=== PATIENT | male | born 1960 | race Caucasian/White ===

== ENCOUNTER 2017-09-30 08:47 | Inpatient (IN) ==
--- NOTE | 2017-09-30 09:09 | Emergency Department Note ---
Disposition Clinical Impression: STEMI (ST elevation myocardial infarction) Disposition: Admitted As Inpatient Condition: Fair Referrals: NONE,PCP [Primary Care Provider] - Forms: ED Satisfaction Letter Time of Disposition: 09:28 General Adult HPI - General Chief complaint: ED Shortness of Breath/Dyspnea Stated complaint: SANCHO, Stent placed 09/26 Time Seen by Provider: 09/30/17 08:55 Source: patient, family Mode of arrival: ambulatory Limitations: no limitations Nursing Notes Reviewed: Yes Vital Signs Reviewed: Yes - History of Present Illness HPI Narrative: Patient is a 56-year-old male that ambulates to the ED with chief complaint shortness of breath that started yesterday evening. Patient recently had a stent placed on 09/26/2017 in [facility]. It appears that patient had a stent placed in his proximal LAD. Pt denies any chest pain, nausea, vomiting, diaphoresis, fever, cough, abdominal pain, weakness or any other symptoms as complaints. Patient states that when he was in [place] when he had his heart attack he was having chest pain at that time. states that patient never goes to the doctor. While in [place] they started him on diabetic and high blood pressure medication. Pt is does smoke cigarettes but states he stopped after he had his heart attack Pt Subjective Complaint: SOB Onset (ago): day(s) (yesterday evening) Pain Scale: 0 Improves with: nothing Worsens with: nothing Associated symptoms: Reports: denies other symptoms. Denies: confusion, chest pain, cough, diaphoresis, fever/chills, headaches, loss of appetite, malaise, nausea/vomiting, rash, seizure, shortness of breath, syncope, weakness - Related Data Home Medications Medication Instructions Recorded Confirmed Aspirin [Lo-Dose Aspirin EC] 81 mg PO DAILY 09/30/17 09/30/17 Atorvastatin Calcium 80 mg PO DAILY 09/30/17 09/30/17 Carvedilol [Coreg] 6.25 mg PO BIDWM 09/30/17 09/30/17 Famotidine [Heartburn Prevention] 20 mg PO BID 09/30/17 09/30/17 Furosemide [Lasix] 20 mg PO DAILY PRN 09/30/17 09/30/17 Lisinopril [Zestril] 5 mg PO DAILY 09/30/17 09/30/17 Nitroglycerin [Nitrostat] 0.4 mg SL Q5M PRN 09/30/17 09/30/17 Spironolactone [Aldactone] 25 mg PO DAILY 09/30/17 09/30/17 Ticagrelor [Brilinta] 90 mg PO BID 09/30/17 09/30/17 Warfarin [Coumadin] 5 mg PO DAILY 09/30/17 09/30/17 glipiZIDE [Glucotrol] 5 mg PO BIDWM 09/30/17 09/30/17 Allergies Allergy/AdvReac Type Severity Reaction Status Date / Time No Known Allergies Allergy Verified 09/30/17 08:49 All systems ED: reviewed and negative except as stated. Review of Systems: As Per HPI Constitutional: Denies: fever, chills, weakness Eyes: Denies: vision change ENT ED: Denies: congestion Cardiovascular: Denies: chest pain, palpitations, dyspnea on exertion, orthopnea , syncope, paroxysmal nocturnal dyspnea Respiratory: Reports: dyspnea. Denies: cough, wheezes, hemoptysis, stridor, sputum production Gastrointestinal: Denies: abdominal pain, nausea, vomiting, diarrhea, constipation, hematemesis, melena, hematochezia Genitourinary: Denies: urgency, dysuria, frequency Musculoskeletal: Denies: back pain, neck pain Integumentary: Denies: rash Neurological: Denies: headache, weakness, numbness, paresthesias Past Medical History - Past Medical History Source: patient Medical history: Reports: coronary artery disease, diabetes, myocardial infarction, other Surgical history: Reports: non-contributory Psychiatric history: Reports: no psych history - Social History Smoking Status: Former smoker Smokeless Tobacco Status: No Alcohol use: Reports: none Drug use: Reports: none Physical Exam - General Limitations: no limitations General appearance: alert, in no apparent distress - Head Head exam: atraumatic, normocephalic, normal inspection - Eye Eye exam: Present: normal appearance, EOMI - ENT ENT exam: normal exam, normal oropharynx, mucous membranes moist - Neck Neck exam: Present: normal inspection, full ROM, trachea midline. Absent: tenderness, meningismus - Chest Chest inspection: Present: symmetric chest wall rise - Respiratory Respiratory exam: Present: normal lung sounds bilaterally. Absent: respiratory distress, wheezes, stridor, accessory muscle use, prolonged expiratory phase - Cardiovascular Cardiovascular exam: Present: regular rate, normal rhythm, normal heart sounds - Abdominal Exam Abdominal exam: Present: soft, Non-Tender, normal bowel sounds. Absent: tenderness, distention, guarding, rebound, rigidity - Extremities Exam Extremities exam: Present: normal inspection, full ROM. Absent: tenderness, pedal edema - Expanded Lower Extremity Exam Gait: observed and normal - Back Exam Back exam: Present: normal inspection, full ROM. Absent: tenderness - Neurological Exam Neurological exam: Present: alert, oriented X3, CN II-XII intact - Psychiatric Psychiatric exam: Present: normal affect, normal mood - Skin Skin exam: Present: warm, dry, intact, normal color. Absent: rash, cyanosis, diaphoresis Course Course Narrative: Patient is a 56-year-old male that ambulates to the ED with chief complaint shortness of breath that started yesterday evening. Patient recently had a stent placed on 09/26/2017 in [facility]. It appears that patient had a stent placed in his proximal LAD. Pt denies any chest pain, nausea, vomiting, diaphoresis, fever, cough, abdominal pain, weakness or any other symptoms as complaints. Patient states that when he was in [place] when he had his heart attack he was having chest pain at that time. states that patient never goes to the doctor. While in [place] they started him on diabetic and high blood pressure medication. Pt is does smoke cigarettes but states he stopped after he had his heart attack EKG was done in triage. EKG was seen by Dr. ORTEGA at 08 54 AM, which showed anteroseptal ST elevations with deep T-wave inversions. STEMI CALLED 08:55 Dr. Ortega and I immediately examined patient upon arrival. Pt immediately hooked up to crash cart.Patient is alert and oriented 3. Appears in no acute distress. Vital stable. Afebrile. Head normocephalic. Eyes normal inspection. ENT within normal limits. Neck supple, full range of motion, nontender. Heart RRR. Lungs CTAB. No wheezing, stridor or retractions. Abdomen soft, nontender. Back normal instruction, nontender. Extremities within normal limits. Neuro no focal neurological deficits noted on exam. Dr. Ortega IMMEDIATELY walked patient's EKG down to Dr. Bee in the lab analyst for him to review personally @08:[address] Bee sent his ORE GRADER to the ED to evaluate pt. Waiting on labs to return for possible immediate catheterization. Patient is currently on Brilinta and Coumadin. If Patient's INR is 2 or less, will call research laboratory manager again to confirm starting Heparin drip and wheeling pt down to Cath. 09:18 AM Heparin Drip started 09:28AM, still waiting disposition for possible cath. Discussed case with Dr. Bee's ORE GRADER. She states that Dr. Bee recommends a CTA at this time to rule out PE, since his INR is 1.2 and he doesn't have any previous EKG to compare to at this time. States pt has no reciprocal changes on his current EKG. Still currently waiting on documents from [place]. 09:26am. Again, pt denying any pain. Vitals stable. 09:26 AM. CXR: Borderline cardiomegaly without acute abnormality. Trop 9.3 - Reevaluation(s) Reevaluation #1: Walked old EKG's down for Dr. eBe to review. He states they look the same. Will consult again after CTA returns. Time: 10:18 Reevaluation #2: Dr. Vaughan in our ED evaluating patient. Patient will not be going to the lab analyst and will be admitted to medicine. Hospitalist paged at this time. Time: 10:36 Reevaluation #3: DR. Beckett accepted pt. Request I order a CK. No other request at this time. After Dr. Vaughan evaluated pt in the ED she requested I give patient 90 mg Brilinta and Lasix [address] Vaughan states that she thinks this is all heart failure related. Vital Signs Temperature 98.7 F 09/30/17 08:49 Pulse Rate 74 09/30/17 08:49 Respiratory Rate 20 09/30/17 08:49 Blood Pressure 124/87 09/30/17 08:49 O2 Sat by Pulse Oximetry 98 09/30/17 08:49 Temperature 98.7 F 09/30/17 08:49 Pulse Rate 65 09/30/17 10:49 Respiratory Rate 14 09/30/17 10:49 Blood Pressure 110/75 09/30/17 10:49 O2 Sat by Pulse Oximetry 97 09/30/17 10:49 Oxygen Delivery Oxygen Delivery Room Air Medical Decision Making - Medical Records Medical records reviewed: Yes I reviewed the patient's medical records. - Lab Data Lab results reviewed: Yes I reviewed the patient's lab results. Result diagrams: 09/30/17 09:00 09/30/17 09:00 Lab Results 09/30/17 09/30/17 09/30/17 Range/Units 09:00 09:00 09:00 WBC 11.0 (4.3-11.1) K/mcL RBC 5.04 (4.19-5.50) M/mcL Hgb 14.9 (12.9-16.9) g/dL Hct 44.7 (37.5-50.1) % MCV 88.7 (83.0-100.0) fL MCH 29.6 (28.0-33.3) pg MCHC 33.3 (31.6-35.5) g/dL RDW 13.0 (11.5-14.5) % Plt Count 298 (140-400) K/mcL MPV 10.7 (9.4-12.4) fL Immature Gran % 0.5 (0-4) % Seg Neutrophils % 65.5 % Lymphocytes % 21.7 % Monocytes % 9.2 % Eosinophils % 2.6 % Basophils % 0.5 % Neutrophils # 7.2 (1.6-8.9) K/mcL Lymphocytes # 2.4 (0.6-4.6) K/mcL Monocytes # 1.0 (0.0-1.3) K/mcL Eosinophils # 0.3 (0.0-0.6) K/mcL Basophils # 0.1 (0.0-0.2) K/mcL PT 14.0 H (9.4-12.1) Seconds INR 1.3 APTT 31.2 (26.0-36.0) Seconds Sodium 132 L (136-145) mEq/L Potassium 4.1 (3.5-5.1) mEq/L Chloride 99 (98-107) mEq/L Carbon Dioxide 27 (23-29) mEq/L BUN 16 (6-20) mg/dL Creatinine 0.85 (0.70-1.30) mg/dL Est GFR ( Amer) > 60 (> 60) Est GFR (Non-Af Amer) > 60 (> 60) BUN/Creatinine Ratio 19 (6-26) Glucose 227 H (70-105) mg/dL Calculated Osmolality 282 (280-300) Calcium 9.3 (8.6-10.3) mg/dL Troponin I (< 0.04) ng/mL 09/30/17 Range/Units 09:00 WBC (4.3-11.1) K/mcL RBC (4.19-5.50) M/mcL Hgb (12.9-16.9) g/dL Hct (37.5-50.1) % MCV (83.0-100.0) fL MCH (28.0-33.3) pg MCHC (31.6-35.5) g/dL RDW (11.5-14.5) % Plt Count (140-400) K/mcL MPV (9.4-12.4) fL Immature Gran % (0-4) % Seg Neutrophils % % Lymphocytes % % Monocytes % % Eosinophils % % Basophils % % Neutrophils # (1.6-8.9) K/mcL Lymphocytes # (0.6-4.6) K/mcL Monocytes # (0.0-1.3) K/mcL Eosinophils # (0.0-0.6) K/mcL Basophils # (0.0-0.2) K/mcL PT (9.4-12.1) Seconds INR APTT (26.0-36.0) Seconds Sodium (136-145) mEq/L Potassium (3.5-5.1) mEq/L Chloride (98-107) mEq/L Carbon Dioxide (23-29) mEq/L BUN (6-20) mg/dL Creatinine (0.70-1.30) mg/dL Est GFR ( Amer) (> 60) Est GFR (Non-Af Amer) (> 60) BUN/Creatinine Ratio (6-26) Glucose (70-105) mg/dL Calculated Osmolality (280-300) Calcium (8.6-10.3) mg/dL Troponin I 9.30 H* (< 0.04) ng/mL - Radiology Data Radiology results reviewed: Yes I reviewed the patient's radiology results.
[2017-09-30 09:13] LABS: INR 1.3
--- NOTE | 2017-09-30 09:13 | Emergency Department Note ---
Disposition Clinical Impression: Dyspnea STEMI (ST elevation myocardial infarction) Qualifiers: Involved coronary artery: LAD coronary artery Qualified Code(s): I21.02 - ST elevation (STEMI) myocardial infarction involving left anterior descending coronary artery Disposition: Admitted As Inpatient Condition: Fair General Adult HPI - General Chief complaint: ED Shortness of Breath/Dyspnea Stated complaint: SANCHO, Stent placed 09/26 Time Seen by Provider: 09/30/17 08:55 Source: patient, family Mode of arrival: ambulatory Limitations: no limitations - History of Present Illness Pain Scale: 0 - Related Data Home Medications Medication Instructions Recorded Confirmed Aspirin [Lo-Dose Aspirin EC] 81 mg PO DAILY 09/30/17 09/30/17 Atorvastatin Calcium 80 mg PO DAILY 09/30/17 09/30/17 Carvedilol [Coreg] 6.25 mg PO BIDWM 09/30/17 09/30/17 Famotidine [Heartburn Prevention] 20 mg PO BID 09/30/17 09/30/17 Furosemide [Lasix] 20 mg PO DAILY PRN 09/30/17 09/30/17 Lisinopril [Zestril] 5 mg PO DAILY 09/30/17 09/30/17 Nitroglycerin [Nitrostat] 0.4 mg SL Q5M PRN 09/30/17 09/30/17 Spironolactone [Aldactone] 25 mg PO DAILY 09/30/17 09/30/17 Ticagrelor [Brilinta] 90 mg PO BID 09/30/17 09/30/17 Warfarin [Coumadin] 5 mg PO DAILY 09/30/17 09/30/17 glipiZIDE [Glucotrol] 5 mg PO BIDWM 09/30/17 09/30/17 Allergies Allergy/AdvReac Type Severity Reaction Status Date / Time No Known Allergies Allergy Verified 09/30/17 08:49 Past Medical History - Past Medical History Medical history: Reports: coronary artery disease, diabetes, myocardial infarction, other Surgical history: Reports: non-contributory Psychiatric history: Reports: no psych history - Social History Smoking Status: Former smoker Smokeless Tobacco Status: No Alcohol use: Reports: none Drug use: Reports: none Physical Exam - General Limitations: no limitations General appearance: alert, in no apparent distress Course Vital Signs Temperature 98.7 F 09/30/17 08:49 Pulse Rate 74 09/30/17 08:49 Respiratory Rate 20 09/30/17 08:49 Blood Pressure 124/87 09/30/17 08:49 O2 Sat by Pulse Oximetry 98 09/30/17 08:49 Temperature 98.7 F 09/30/17 08:49 Pulse Rate 70 09/30/17 12:53 Respiratory Rate 14 09/30/17 12:53 Blood Pressure 119/87 09/30/17 12:53 O2 Sat by Pulse Oximetry 97 09/30/17 12:53 Oxygen Delivery Oxygen Delivery Nasal Cannula Medical Decision Making - Lab Data Result diagrams: 09/30/17 09:00 09/30/17 09:00 Lab Results 09/30/17 09/30/17 09/30/17 Range/Units 09:00 09:00 09:00 WBC 11.0 (4.3-11.1) K/mcL RBC 5.04 (4.19-5.50) M/mcL Hgb 14.9 (12.9-16.9) g/dL Hct 44.7 (37.5-50.1) % MCV 88.7 (83.0-100.0) fL MCH 29.6 (28.0-33.3) pg MCHC 33.3 (31.6-35.5) g/dL RDW 13.0 (11.5-14.5) % Plt Count 298 (140-400) K/mcL MPV 10.7 (9.4-12.4) fL Immature Gran % 0.5 (0-4) % Seg Neutrophils % 65.5 % Lymphocytes % 21.7 % Monocytes % 9.2 % Eosinophils % 2.6 % Basophils % 0.5 % Neutrophils # 7.2 (1.6-8.9) K/mcL Lymphocytes # 2.4 (0.6-4.6) K/mcL Monocytes # 1.0 (0.0-1.3) K/mcL Eosinophils # 0.3 (0.0-0.6) K/mcL Basophils # 0.1 (0.0-0.2) K/mcL PT 14.0 H (9.4-12.1) Seconds INR 1.3 APTT 31.2 (26.0-36.0) Seconds Sodium 132 L (136-145) mEq/L Potassium 4.1 (3.5-5.1) mEq/L Chloride 99 (98-107) mEq/L Carbon Dioxide 27 (23-29) mEq/L BUN 16 (6-20) mg/dL Creatinine 0.85 (0.70-1.30) mg/dL Est GFR ( Amer) > 60 (> 60) Est GFR (Non-Af Amer) > 60 (> 60) BUN/Creatinine Ratio 19 (6-26) Glucose 227 H (70-105) mg/dL Calculated Osmolality 282 (280-300) Calcium 9.3 (8.6-10.3) mg/dL Creatine Kinase 197 (30-223) Units/L Troponin I (< 0.04) ng/mL 09/30/17 Range/Units 09:00 WBC (4.3-11.1) K/mcL RBC (4.19-5.50) M/mcL Hgb (12.9-16.9) g/dL Hct (37.5-50.1) % MCV (83.0-100.0) fL MCH (28.0-33.3) pg MCHC (31.6-35.5) g/dL RDW (11.5-14.5) % Plt Count (140-400) K/mcL MPV (9.4-12.4) fL Immature Gran % (0-4) % Seg Neutrophils % % Lymphocytes % % Monocytes % % Eosinophils % % Basophils % % Neutrophils # (1.6-8.9) K/mcL Lymphocytes # (0.6-4.6) K/mcL Monocytes # (0.0-1.3) K/mcL Eosinophils # (0.0-0.6) K/mcL Basophils # (0.0-0.2) K/mcL PT (9.4-12.1) Seconds INR APTT (26.0-36.0) Seconds Sodium (136-145) mEq/L Potassium (3.5-5.1) mEq/L Chloride (98-107) mEq/L Carbon Dioxide (23-29) mEq/L BUN (6-20) mg/dL Creatinine (0.70-1.30) mg/dL Est GFR ( Amer) (> 60) Est GFR (Non-Af Amer) (> 60) BUN/Creatinine Ratio (6-26) Glucose (70-105) mg/dL Calculated Osmolality (280-300) Calcium (8.6-10.3) mg/dL Creatine Kinase (30-223) Units/L Troponin I 9.30 H* (< 0.04) ng/mL Attestation Statement - Attestation Attestation: For this encounter, I have reviewed the [employer] or PA documentation, treatment plan, and medical decision making; and I have had face to face time with this patient. Patient presents to the ED complaining of shortness of breath. Onset about 1 AM today. Patient is status post stent placement to his LAD in [place] on Thursday. Feeling bad this morning. He denies any chest pain back pain pressure or heaviness. He states he was having chest pain when he had his heart catheter performed. Exam. The patient is sitting on the edge of the bed in no distress. I was handed an EKG that shows anteroseptal ST elevations with deep T-wave inversions. It is unclear if this is reperfusion or another ST elevation MO. We did call a STEMI alert and in discussing with Dr. Bee and review the EKG with him. Cardiac workup at this time. Awaiting cardiology decision on cath.
[2017-09-30 09:16] LABS: Activated Partial Thrombo Time 31.2 Seconds (26.0-36.0)
[2017-09-30 09:22] LABS: BUN/Creatinine Ratio 19 (6-26); Blood Urea Nitrogen 16 mg/dL (6-20); Calcium 9.3 mg/dL (8.6-10.3); Carbon Dioxide 27 mEq/L (23-29); Chloride 99 mEq/L (98-107); Glucose 227 mg/dL (70-105); Osmolality,Calculated 282 (280-300); Potassium 4.1 mEq/L (3.5-5.1); Sodium 132 mEq/L (136-145); eGFR For African Americans > 60 (> 60); eGFR For Non-African Americans > 60 (> 60)
[2017-09-30] MEDS ORDERED: Aspirin 81 MG TAB.CHEW PO ONE (09:22)
[2017-09-30] MEDS ORDERED: *HR* Heparin 5,000 UNIT/ML VIAL IVP PRN ×2 (09:23)
[2017-09-30] MEDS ORDERED: *HR* Heparin 5,000 UNIT/ML VIAL IVP ONE (09:23)
[2017-09-30] MEDS ORDERED: Heparin 25,000 UNIT/500 ML D5W 25,000 UNIT/500 ML BAG IVC SCH (09:30)
[2017-09-30 09:32] LABS: Basophils # 0.1 K/mcL (0.0-0.2); Basophils % 0.5 %; Eosinophils # 0.3 K/mcL (0.0-0.6); Eosinophils % 2.6 %; Hematocrit 44.7 % (37.5-50.1); Hemoglobin 14.9 g/dL (12.9-16.9); Immature Granulocytes % 0.5 % (0-4); Lymphocytes # 2.4 K/mcL (0.6-4.6); Lymphocytes % 21.7 %; Mean Corpuscular HGB Conc 33.3 g/dL (31.6-35.5); Mean Corpuscular Hemoglobin 29.6 pg (28.0-33.3); Mean Corpuscular Volume 88.7 fL (83.0-100.0); Mean Platelet Volume 10.7 fL (9.4-12.4); Monocytes % 9.2 %; Neutrophils # 7.2 K/mcL (1.6-8.9); Platelet Count 298 K/mcL (140-400); Red Blood Count 5.04 M/mcL (4.19-5.50); Segmented Neutrophils % 65.5 %
[2017-09-30] MEDS ORDERED: *HR* Ticagrelor 90 MG TABLET PO SCH (11:00)
[2017-09-30] MEDS ORDERED: Furosemide 40 MG TABLET PO ONE (11:00)
--- NOTE | 2017-09-30 11:01 | Cardiology Consult Note ---
<Ras Waller - Last Filed: 09/30/17 11:22> Date of Encounter: 09/30/17 Time of Encounter: 08:00 Assessment and Plan (1) CAD (coronary artery disease) Current Visit: Yes Status: Acute S/p recent STEMI 09/26/17 s/p PCI at OSH. Limited records received EKG shows ST elevation in the anteriolateral leads concerning for recent SC. Q waves present. No reciprocal changes. Current EKG and old EKG reviewed by interventionalist and found to be unchanged from most recent EKG prior to discharge from OSH. Continue DAPT with asa and brilinta. Hold coumadin for now. Heprin gtt until further work-up. Continue bb and statin. Trend troponin. Troponin 9.8. limited records reviewed from OSH. Noted that OSH checked troponin T and we check troponin I. Values were not comparable. Continue to trend to make sure they are trending down. Check repeat echo with definity. Last TTE showed EF 40%> no LV thrombus seen. Qualifiers: Coronary Disease-Associated Artery/Lesion type: [place] artery [place] vs. transplanted heart: [place] heart Associated angina: angina presence unspecified Qualified Code(s): I25.10 - Atherosclerotic heart disease of [place] coronary artery without angina pectoris (2) Elevated troponin Current Visit: Yes Status: Acute See plan above. (3) SOB (shortness of breath) Current Visit: Yes Status: Acute Symptoms concerning for systolic CHF. IV lasix given. CTA shows possible atypical Pnuemonia. Negative for PE. Check TTE. (4) Acute on chronic systolic (congestive) heart failure Current Visit: Yes Status: Acute Known EF 40%. C/o orthopnea and PND. Give IV lasix x1. CHF education. Low sodium diet and daily weights. (5) Atypical pneumonia Current Visit: Yes Status: Acute CTA shows possible broncho pneumonia. S/p recent travel. Management per primary team. Discussion w patient/family: The assessment and plan as outlined above was discussed with the patient and/or family members who expressed understanding and agreement. All questions were answered. Thank you for involving us in the care of your patient. Please call with any questions. History of Present Illness Consult date: 09/30/17 Requesting physician: Cristina Lo Consult reason: abnormal EKG Chief complaint: SOB History of present illness: Mr. Kraft is a 56 year old male who presented to [place] with increasing SOB. He is s/p acute SC and PCI 09/26/17 at OSH in [facility]. Cardiology consulted after he was found to have abnormal EKG concerning for SC. Records ordered from recent SC and EKG is unchange. Mr. Kraft was vacationing in [place] when he developed acute SC. He was discharged from the hospital in [place] 09/28/17 and his drove him home. He did not arrive home until 4: 00am 09/29/17. At noon yesterday he started feeling SOB and unwell. He denies chest pain that he felt with his prior SC. He denies missed medications. He states that he was diagnosed with DM and HTN during the same hospital stay. He is noted to be on coumadin and he is unsure why. Past Med Surg Social Fam HX - Past Medical History Medical history: coronary artery disease, diabetes, myocardial infarction, other Psychiatric history: no psych history - Past Surgical History Surgical History: non-contributory - Social History Smoking Status: Former smoker Smokeless Tobacco Status: No Alcohol use: none Drug use: none Medications and Allergies Aspirin [Lo-Dose Aspirin EC] 81 mg PO DAILY 09/30/17 [History] Atorvastatin Calcium 80 mg PO DAILY 09/30/17 [History] Carvedilol [Coreg] 6.25 mg PO BIDWM 09/30/17 [History] Famotidine [Heartburn Prevention] 20 mg PO BID 09/30/17 [History] Furosemide [Lasix] 20 mg PO DAILY PRN 09/30/17 [History] Lisinopril [Zestril] 5 mg PO DAILY 09/30/17 [History] Nitroglycerin [Nitrostat] 0.4 mg SL Q5M PRN 09/30/17 [History] Spironolactone [Aldactone] 25 mg PO DAILY 09/30/17 [History] Ticagrelor [Brilinta] 90 mg PO BID 09/30/17 [History] Warfarin [Coumadin] 5 mg PO DAILY 09/30/17 [History] glipiZIDE [Glucotrol] 5 mg PO BIDWM 09/30/17 [History] 3 Allergy/AdvReac Type Severity Reaction Status Date / Time No Known Allergies Allergy Verified 09/30/17 08:49 All Systems Review: A 10-system review of systems was performed and is negative for pertinent findings except as documented above in the HPI. Physical Examination Vital Signs, Last 4 Hours Temp Pulse Resp BP Pulse Ox 09/30/17 10:49 65 14 110/75 97 09/30/17 10:08 69 13 111/75 98 09/30/17 09:46 97 09/30/17 09:44 71 16 116/81 98 09/30/17 09:05 85 12 143/96 96 09/30/17 08:59 81 14 99 09/30/17 08:49 98.7 F 74 20 124/87 98 General: Conversant, No Apparent Distress HEENT: Atraumatic, Normocephaly, Mucus Membranes Moist Neck: No JVD, Normal carotid pulses Cardiac: Reg Rate and Rhythm, Normal S1 and S2, No Murmur Lungs: Normal Breath Sounds, No Wheeze, Rales, Rhonchi Neuro: Alert and responsive, No focal deficits noted Abdomen: Soft, Non-Tender Skin: No rashes noted on visualized skin Musculoskeletal: No Chest Wall Tenderness Extremities: No Clubbing, No Cyanosis, No Edema, Normal Pulses Results 09/30/17 09:00 09/30/17 09:00 Lab Results 09/30/17 09/30/17 09/30/17 09:00 09:00 09:00 WBC 11.0 Hgb 14.9 Hct 44.7 Plt Count 298 INR 1.3 APTT 31.2 Sodium 132 L Potassium 4.1 Chloride 99 Carbon Dioxide 27 BUN 16 Creatinine 0.85 Glucose 227 H Calcium 9.3 Troponin I 09/30/17 09:00 WBC Hgb Hct Plt Count INR APTT Sodium Potassium Chloride Carbon Dioxide BUN Creatinine Glucose Calcium Troponin I 9.30 H* - EKG Interpretation EKG results cardiology: personally reviewed Consult Discharge Plan - Plan Referrals: NONE,PCP [Primary Care Provider] - <Tanya Vaughan - Last Filed: 09/30/17 11:38> Date of Encounter: 09/30/17 - Attending Attestation I examined this patient and my medical decision-making was reviewed with the PUBLIC RELATIONS MANAGER. I agree with the documented findings, disposition and treatment plan as described. Mr. Kraft recently had an anterior STEMI 09/26/2017 while visiting in [place]. He was discharged Thursday and returned yesterday. After going to bed yesterday evening, he developed symptoms of SOB while laying flat and describes orthopnea and PND. He was given PO lasix to be used prn but has not yet taken any. He otherwise denies chest pain. While in ER, he's been hemodynamically stable. ECG done in ER demonstrates anterior ST-T abnormalities without reciprocal changes and is similar when compared to ECG obtained from outside hospital taken after STEMI. Troponin performed here is elevated at 9.3 but is challenging to interpret in setting of recent SC and PCI. The outside institution checks Troponin T and not Troponin I so the value/scales are not comparable. At this time, I recommend a dose of 40mg of IV lasix - LVEF 40% at OSH. Would continue heparin until next troponin, looking for a downtrend. After visiting with the patient, the CTA returned which was negative for PE but demonstrates concern for developing bronchopneumonia which certainly could be contributing to patient's symptoms. Management per primary team. In regards to coumadin - patient and family are not sure why he was placed on this. When I mentioned atrial fibrillation, they think he may have had an episode after the SC. We will obtain detailed records for review. The limited records that were sent from the OSH did include 2 echo's which both demonstrate lack of thrombus. We will repeat an echo while he is here with contrast. Continue BB, statin. Was on ACEI, spironolactone - will need to reintroduce as BP allows. Further recommendations pending testing and observation. Assessment and Plan Discussion w patient/family: The assessment and plan as outlined above was discussed with the patient and/or family members who expressed understanding and agreement. All questions were answered. Thank you for involving us in the care of your patient. Please call with any questions. History of Present Illness History of present illness: Mr. Kraft is a 56 year old male All Systems Review: A 10-system review of systems was performed and is negative for pertinent findings except as documented above in the HPI. Physical Examination Vital Signs, Last 4 Hours Pulse Resp BP Pulse Ox 09/30/17 11:23 63 14 110/75 98 Results 09/30/17 09:00 09/30/17 09:00
[2017-09-30] MEDS ORDERED: *HR* Ticagrelor 90 MG TABLET PO ONE (11:02)
[2017-09-30] MEDS ORDERED: Nitroglycerin 0.4 MG TAB.SUBL SL PRN (11:23)
[2017-09-30 12:14] LABS: Creatine Kinase 197 Units/L (30-223)
--- NOTE | 2017-09-30 13:10 | Internal Med History&Physical ---
Date of Encounter: 09/30/17 Time of Encounter: 13:04 Assessment and Plan (1) Diabetes 1.5, managed as type 2 Current visit: Yes Status: Chronic Chronic we will continue home medication Check Hemoglobin A1c (2) Hyperlipidemia Current visit: Yes Status: Chronic Chronic resume home medication Qualifiers: Hyperlipidemia type: pure hypercholesterolemia Qualified Code(s): E78.00 - Pure hypercholesterolemia, unspecified; E78.0 - Pure hypercholesterolemia (3) HTN (hypertension) Current visit: Yes Status: Chronic Chronic and well-controlled Qualifiers: Hypertension type: essential hypertension Qualified Code(s): I10 - Essential (primary) hypertension (4) Pneumonia Current visit: Yes Status: Acute Echo no evidence of pneumonia no fever or chills white count is normal no productive cough Qualifiers: Pneumonia type: due to unspecified organism Laterality: unspecified laterality Lung location: unspecified part of lung Qualified Code(s): J18.9 - Pneumonia, unspecified organism (5) STEMI (ST elevation myocardial infarction) Current visit: Yes Status: Acute Patient with recent STEMI at [facility] please see Cardiologic consult evaluation for detail Qualifiers: Involved coronary artery: LAD coronary artery Qualified Code(s): I21.02 - ST elevation (STEMI) myocardial infarction involving left anterior descending coronary artery (6) CAD (coronary artery disease) Current visit: Yes Status: Acute Qualifiers: Coronary Disease-Associated Artery/Lesion type: [place] artery [place] vs. transplanted heart: [place] heart Associated angina: angina presence unspecified Qualified Code(s): I25.10 - Atherosclerotic heart disease of [place] coronary artery without angina pectoris (7) Acute on chronic systolic (congestive) heart failure Current visit: Yes Status: Acute Acute congestive heart failure likely systolic 2-D echo from or as EF 40% repeat echo pending Persistent ST elevation with a concern for aneurysm Internal Medicine - H&P: HPI Chief complaint: sob Admitted From: Emergency Dept Plans for Post Hospital Care: Home History of present illness: Mr. Kraft is a 56 year old male Patient with history of diabetes, high cholesterol, hypertension, patient was at [facility] at [place] with recent anterior wall acute NV underwent PTCA stent placement to proximal LAD that was 4 days ago September 26 patient was discharged 2 days ago September 28. They drove back home patient developed shortness of breath since yesterday , PND and orthopnea no chest pain no chest tightness or pressure. Denies any cough no fever or chills and came into the emergency room here EKG showed ST elevation it was felt patient was having STEMI . cardiology was called reviewed EKG was unchanged from EKG from acute NV from [facility] Patient was not taken to the [facility] patient initial troponin was 9.6 patient will be monitored with serial troponin 2-D echo has been ordered which is pending patient was also given Lasix 40 mg IV on exam patient lung at this point is clear chest x-ray shows CHF no pneumonia but CTA of the chest suggestive of atypical pneumonia. Patient clinically does not appear to have pneumonia no fever no chills no productive cough , wbc is normal chest x-ray is unremarkable Past Med Surg Social Fam HX - Past Medical History Medical history: coronary artery disease, diabetes, myocardial infarction, other Psychiatric history: no psych history - Past Surgical History Surgical History: non-contributory - Social History Smoking Status: Former smoker Smokeless Tobacco Status: No Alcohol use: none Drug use: none Internal Medicine - H&P: Meds Aspirin [Lo-Dose Aspirin EC] 81 mg PO DAILY 09/30/17 [History] Atorvastatin Calcium 80 mg PO DAILY 09/30/17 [History] Carvedilol [Coreg] 6.25 mg PO BIDWM 09/30/17 [History] Famotidine [Heartburn Prevention] 20 mg PO BID 09/30/17 [History] Furosemide [Lasix] 20 mg PO DAILY PRN 09/30/17 [History] Lisinopril [Zestril] 5 mg PO DAILY 09/30/17 [History] Nitroglycerin [Nitrostat] 0.4 mg SL Q5M PRN 09/30/17 [History] Spironolactone [Aldactone] 25 mg PO DAILY 09/30/17 [History] Ticagrelor [Brilinta] 90 mg PO BID 09/30/17 [History] Warfarin [Coumadin] 5 mg PO DAILY 09/30/17 [History] glipiZIDE [Glucotrol] 5 mg PO BIDWM 09/30/17 [History] 3 Allergy/AdvReac Type Severity Reaction Status Date / Time No Known Allergies Allergy Verified 09/30/17 08:49 All Systems PM: A 10-system review of systems was performed and is negative for pertinent findings except as documented above in the HPI. - Constitutional Constitutional: no chills, no fever(s), no night sweats - EENT Eyes: no change in vision, no discharge, no pain, no photophobia Ears: no ear discharge, no ear pain, no tinnitus Nose, mouth and throat: no dysphagia, no nasal discharge, no neck pain, no sore throat - Cardiovascular Cardiovascular ROS IM: dyspnea, dyspnea on exertion, edema - Respiratory Respiratory: dyspnea, dyspnea on exertion - Gastrointestinal Gastrointestinal: no abdominal pain, no diarrhea, no hematemesis, no hematochezia, no melena, no nausea, no vomiting - Musculoskeletal Musculoskeletal ROS IM: no numbness, no tingling - Integumentary Integumentary IM: no rash, no unusual bruising - Neurological Neurological ROS: no confusion, no convulsions, no focal weakness, no numbness, no tingling, no tremor(s) - Constitutional Vitals: Temp Pulse Resp BP Pulse Ox 98.7 F 70 14 119/87 97 09/30/17 08:49 09/30/17 12:53 09/30/17 12:53 09/30/17 12:53 09/30/17 12:53 - Head Head exam: Present: atraumatic, normocephalic - Eye Eye exam: Present: PERRL, conjuntiva pink, sclera anicteric Pupils: Present: PERRL - Neck Neck exam general surgery: Present: supple, trachea midline. Absent: lymphadenopathy - Respiratory Respiratory exam: Present: CTAB. Absent: accessory muscle use, rales, rhonchi, wheezes - Cardiovascular Cardiovascular exam: Present: RRR, +S1, +S2. Absent: diastolic murmur, gallop, rubs, systolic murmur - GI/Abdominal GI/Abdominal exam: Present: normal bowel sounds, soft, no peritoneal signs. Absent: distended, tenderness - Extremities Exam Extremities exam: Present: warm, radial pulses palpable and symmetrical. Absent : calf tenderness, cyanotic, pedal edema - Neurological Exam Neurological exam: Present: CN II-XII intact, oriented X3, no focal deficits. Absent: pronater drift, facial droop, speech deficit - Skin Skin exam: Present: dry, intact Internal Med - H&P Results - Labs CBC & Chem 7: 09/30/17 09:00 09/30/17 09:00
[2017-09-30] MEDS ORDERED: Acetaminophen 325 MG TABLET PO PRN (13:19)
[2017-09-30] MEDS ORDERED: Naloxone 0.4 MG/ML INJ IVP PRN (13:19)
[2017-09-30] MEDS ORDERED: traMADol 50 MG TABLET PO PRN (13:19)
[2017-09-30] MEDS ORDERED: Perflutren Lipid Microsphere 1.3 ML in 0.9 % Sodium Chloride 8.7 ML IVP ONE (15:55)
[2017-09-30] MEDS: *HR* Heparin 5,000 UNIT/ML VIAL SQ SCH (16:57)
[2017-09-30] MEDS: *HR* Ticagrelor 90 MG TABLET PO SCH (20:30)
--- NOTE | 2017-09-30 23:30 | Event Note ---
Date of Encounter: 09/30/17 Time of Encounter: 23:15 Called by nurse to assess patient who was reporting mild SOB. Pt. on 2L via nasal cannula and on exam complained of mild, but increasing SOB. CTA of chest completed earlier d/t concern for possible PE which was negative. CTA also showed multifocal, ill-defined nodular groundglass opacities involving the right lower lobe and to a lesser extent the left lower lobe, most likely related to atypical bronchopneumonia. Patient reported he was hospitalized within the past week and [place] where he had a heart attack and stent placed. Patient's latest vitals included temperature 99.9, heart rate 80, respiration rate 19, and BP 119/82. WBC 11.0 on admission. Will monitor in f/u labs. Blood cultures x 2 ordered. IVPB Ceftriaxone 2000 mg daily for infection coverage d/t recent hospitalization. Will adjust abx coverage based on culture results if warranted. Pt. to be monitored closely.
[2017-10-01] MEDS: cefTRIAXone 2,000 MG in Water for inj. (sterile) 20 ML 20 ML IVPB SCH ×2 (00:24→08:32)
[2017-10-01 02:40] LABS: Hematocrit 45.4 % (37.5-50.1); Hemoglobin 15.3 g/dL (12.9-16.9); Mean Corpuscular HGB Conc 33.7 g/dL (31.6-35.5); Mean Corpuscular Hemoglobin 29.4 pg (28.0-33.3); Mean Corpuscular Volume 87.1 fL (83.0-100.0); Mean Platelet Volume 10.1 fL (9.4-12.4); Platelet Count 314 K/mcL (140-400); Red Blood Count 5.21 M/mcL (4.19-5.50); Red Cell Distribution Width 12.9 % (11.5-14.5)
[2017-10-01 03:18] LABS: Alanine Aminotransferase 63 Units/L (7-52); Albumin/Globulin Ratio 1.2 (1.1-2.2); Alkaline Phosphatase 76 Units/L (34-104); Aspartate Amino Transferase 50 Units/L (13-39); BUN/Creatinine Ratio 20 (6-26); Bilirubin,Total 0.6 mg/dL (0.3-1.0); Blood Urea Nitrogen 17 mg/dL (6-20); Calcium 9.1 mg/dL (8.6-10.3); Carbon Dioxide 26 mEq/L (23-29); Chloride 100 mEq/L (98-107); Chol/HDL Ratio 5.2 (0-4.9); Cholesterol 120 mg/dL (< 200); Globulin 3.3 g/dL (2.4-3.5); Glucose 166 mg/dL (70-105); HDL Cholesterol 23 mg/dL (40-59); LDL Cholesterol,Calculated 78 mg/dL (0-99); Osmolality,Calculated 281 (280-300); Sodium 133 mEq/L (136-145); Total Protein 7.3 g/dL (6.4-8.9); Triglycerides 94 mg/dL (< 150); eGFR For African Americans > 60 (> 60); eGFR For Non-African Americans > 60 (> 60)
[2017-10-01] MEDS: *HR* Heparin 5,000 UNIT/ML VIAL SQ SCH ×2 (06:13→17:00)
[2017-10-01] MEDS: Spironolactone 25 MG TABLET PO SCH (08:31)
[2017-10-01] MEDS: Aspirin Enteric Coated 81 MG Tablet PO SCH (08:31)
[2017-10-01] MEDS: *HR* Ticagrelor 90 MG TABLET PO SCH ×2 (08:31→20:51)
--- NOTE | 2017-10-01 09:34 | Internal Med Progress Note ---
Date of Encounter: 10/01/17 Time of Encounter: 09:32 - Assessment and plan (1) Healthcare-associated pneumonia Current Visit: Yes Status: Acute Assessment and plan: We will switch antibiotics to vancomycin and Zosyn for the day. Check urine strep and Legionella. Follow up on blood cultures. Check sputum cultures if possible. Continue with nebulizers. Wean down oxygen as tolerated. (2) CAD (coronary artery disease) Current Visit: Yes Status: Acute Assessment and plan: Recent stent in LAD. Cardiology is following. Troponins elevated but this seems to be trending down somewhat. Echo with any EF of 25-30%. We will leave up to cardiology. Patient is on aspirin, Brilinta, statin, beta rachell. He is also on lisinopril. Was on a heparin drip but that has been discontinued and now is only on heparin subcutaneous for DVT prophylaxis.. Qualifiers: Coronary Disease-Associated Artery/Lesion type: [place] artery [place] vs. transplanted heart: [place] heart Associated angina: angina presence unspecified Qualified Code(s): I25.10 - Atherosclerotic heart disease of [place] coronary artery without angina pectoris (3) Elevated troponin Current Visit: Yes Status: Acute Assessment and plan: Hog Pusher following with plan is as above. (4) HTN (hypertension) Current Visit: Yes Status: Chronic Assessment and plan: Continue Coreg. Continue lisinopril. Blood pressure is well controlled. Qualifiers: Hypertension type: essential hypertension Qualified Code(s): I10 - Essential (primary) hypertension (5) Hyperlipidemia Current Visit: Yes Status: Chronic Assessment and plan: Continue statin Qualifiers: Hyperlipidemia type: pure hypercholesterolemia Qualified Code(s): E78.00 - Pure hypercholesterolemia, unspecified; E78.0 - Pure hypercholesterolemia (6) Diabetes mellitus Current Visit: Yes Status: Acute Assessment and plan: We will add insulin sliding scale. Continue with Accu-Cheks. Qualifiers: Diabetes mellitus type: type 2 Diabetes mellitus complication status: without complication Diabetes mellitus home health caregiver insulin use: without prison use Qualified Code(s): E11.9 - Type 2 diabetes mellitus without complications (7) DVT prophylaxis Current Visit: Yes Status: Acute Assessment and plan: Heparin subcutaneous - Subjective Interval history: Patient was seen and examined. No acute events. He was admitted with suspected STEMI. Found to have findings of healthcare associated pneumonia. He was recently discharged with stent placed to the LAD on 09/26/2017. He was discharged on 09/28. Cardiology is following the patient. Given the elevated troponins however they believe that this is old changes from his recent stenting. EKG with concerning ST elevations which are similar to previous EKGs reviewed by the cardiologists here. MAXIMUM TEMPERATURE of 99.9. - Constitutional Vitals: Temp Pulse Resp BP Pulse Ox 98.3 F 69 18 122/87 92 10/01/17 09:03 10/01/17 09:03 10/01/17 09:03 10/01/17 09:03 10/01/17 09:03 Exam: GEN: NAD CVS: RRR. S1, S2, No m/r/g RESP: Diminished with bibasilar coarse breath sounds and crackles. ABD: Soft, NT, ND, +BS EXT: No edema. 2+ DP. No rashes NEURO: Nonfocal Internal Medicine: Result - Labs CBC & Chem 7: 10/01/17 02:32 10/01/17 02:32 Labs: Short CBC 10/01/17 Range/Units 02:32 WBC 11.6 H (4.3-11.1) K/mcL Hgb 15.3 (12.9-16.9) g/dL Hct 45.4 (37.5-50.1) % Plt Count 314 (140-400) K/mcL BMP 10/01/17 02:32 Sodium 133 L Potassium 4.0 Chloride 100 Carbon Dioxide 26 BUN 17 Creatinine 0.83 Glucose 166 H Calcium 9.1 Cardiac Enzymes 09/30/17 09/30/17 09/30/17 Range/Units 15:12 19:32 23:54 Troponin I 7.22 H* 8.39 H* 7.57 H* (< 0.04) ng/mL Liver Function 10/01/17 Range/Units 02:32 Total Bilirubin 0.6 (0.3-1.0) mg/dL AST 50 H (13-39) Units/L ALT 63 H (7-52) Units/L Alkaline Phosphatase 76 (34-104) Units/L Albumin 4.0 (3.5-5.7) g/dL - ABG Interpretation ABG results: PT/INR, D-dimer PT 14.0 Seconds (9.4-12.1) H 09/30/17 09:00 - Impressions Impressions Echocardiogram 09/30/17 11:25 Impressions: LVEF 25-30%. Normal LV chamber size. Severe segmental left ventricular systolic dysfunction. Mild left ventricular diastolic dysfunction. Normal right ventricular structure and function. No evidence of pulmonary hypertension. No significant valvular dysfunction. Left Ventricular Wall Motion: Rest Echo Findings The apex, apical inferior, apical anterior, mid anterior, apical septal, mid inferior septal, apical lateral and mid anterior septal cr were hypokinetic. All other wall segments showed normal motion. Findings: Study Quality * Technically adequate exam. ECG Findings * Normal sinus rhythm. Left Ventricle * LVEF 25-30%. * Normal LV chamber size. * Severe segmental left ventricular systolic dysfunction. * Mild left ventricular diastolic dysfunction. Right Ventricle * Normal right ventricular structure and function. Left Atrium * Moderately dilated left atrium. Right Atrium * Normal right atrial size. Interatrial Septum * Interatrial septum not well evaluated. Aortic Valve * Trileaflet aortic valve with normal function. * No aortic regurgitation. * No aortic stenosis. Mitral Valve * Mildly thickened mitral valve leaflets. * Trace mitral regurgitation. * No mitral stenosis. Tricuspid Valve * Normal tricuspid valve structure and function. * Trace tricuspid regurgitation. * No evidence of pulmonary hypertension. Pulmonic Valve * Normal pulmonic valve structure and function. * No pulmonic regurgitation. Aorta * Normally sized aortic root. Pericardium * The pericardium appears normal. IVC * Normal IVC dimensions and inspiratory collapse. Pulmonary Artery * Normal visualized portions of the main pulmonary artery. Consult Discharge Plan - Plan Referrals: Pari Tovar, SORT SUPERVISOR [Advanced Practice Nurse] - NONE,PCP [Primary Care Provider] -
[2017-10-01] MEDS ORDERED: D5% in Water 1,000 ML IVC PRN (09:41)
[2017-10-01] MEDS ORDERED: *HR* Dextrose 50 % in Water (Syg) 50 ML SYRINGE IVP PRN (09:41)
[2017-10-01] MEDS ORDERED: Dextrose Gel 15 GM/37.5 ML TUBE PO PRN ×2 (09:41)
--- NOTE | 2017-10-01 10:33 | Event Note ---
Date of Encounter: 10/01/17 Time of Encounter: 10:30 - Cardiology Event Note Selected Entries 10/01/17 09:03 Temperature 98.3 F Pulse Rate 69 Respiratory Rate 18 Blood Pressure 122/87 O2 Sat by Pulse Oximetry 92 Oxygen Delivery Method Room Air Laboratory Tests 09/30/17 09/30/17 09/30/17 09:00 09:00 15:12 INR 1.3 Creatinine Est GFR (Non-Af Amer) AST ALT Troponin I 9.30 H* 7.22 H* 09/30/17 09/30/17 10/01/17 19:32 23:54 02:32 INR Creatinine 0.83 Est GFR (Non-Af Amer) > 60 AST 50 H ALT 63 H Troponin I 8.39 H* 7.57 H* CHEST CT: IMPRESSION: 1. No evidence of acute pulmonary embolism. 2. Multifocal, ill-defined nodular ground-glass opacities involving the right lower lobe and to a lesser extent the left lower lobe, most likely related to an atypical bronchopneumonia. Follow-up CT recommended in approximately 3-6 months. Previous records reviewed, previous EF 40%, now 25-30%, no significant valvular dysfunction. On aspirin, but left the, statin, beta rachell, QUINTON inhibitor, Aldactone. CT negative for PE. Apparent recent STEMI at outside hospital every 2017. Troponins 9.30, 7.22, 8.39, 7.57. Discussed and reviewed with Dr. Tripp and Dr. Aranda. Plan for left heart catheterization today. Patient and family are agreeable and all questions answered. Apparently started on Coumadin for afib at time of STEMI-- Coumadin on hold, INR 1.3 today.
[2017-10-01] MEDS ORDERED: Adenosine 90 MG/30 ML MLS IV ONE (11:39)
[2017-10-01] MEDS ORDERED: Aminoglycoside Consult 1 EACH MC ONE (11:39)
[2017-10-01] MEDS ORDERED: *HR* Heparin 10,000 UNIT/10 ML VIAL ONE (12:39)
[2017-10-01] MEDS ORDERED: Heparin 1,000 UNITS/500 mL 500 ML ONE (12:39)
[2017-10-01] MEDS ORDERED: 0.9 % Sodium Chloride 1,000 ML ONE ×2 (12:39→12:45)
[2017-10-01] MEDS ORDERED: ISOVUE-370 200 ML INFUS..BTL IV ONE (12:45)
[2017-10-01] MEDS ORDERED: Nitroglycerin 1,000 MCG/10 ML VIAL IV ONE (13:10)
[2017-10-01] MEDS ORDERED: *HR* Midazolam HCl 5 MG/5 ML VIAL IVP ONE (13:10)
[2017-10-01] MEDS: Insulin LISPRO 300 UNITS/3 ML VIAL SQ SCH ×2 (13:15→16:59)
--- NOTE | 2017-10-01 13:22 | Pre-Sedation Evaluation ---
Pre-sedation evaluation - Pre-sedation checklist Date of procedure: 10/01/17 Procedure: [facility] Recent Vitals: Last Vital Signs Temp 98.2 F 10/01/17 11:15 Pulse 70 10/01/17 11:15 Resp 18 10/01/17 11:15 BP 119/81 10/01/17 11:15 Pulse Ox 93 10/01/17 11:15 H&P (including ROS) documented in medical record: Yes Previous reaction to sedatives/anesthetics: No Dietary Status: NPO 6 hours prior to procedure Airway Assessment: Patient can open mouth completely, TMJ function normal Dentition: No loose teeth or bridges Possible difficult airway: No ASA Classification *see protocol: CLASS IV-Severe systemic disease/constant threat to pt's life Plan of Care: Pt appropriate candidate for procedure/moderate/conscious sedation , Risks/benefits of procedure/sedation discussed w/ patient/family, If not NPO; Risk of intake outweiged by necessity to perform procedure
--- NOTE | 2017-10-01 14:39 | Invasive Diagnostic Lab Proc ---
Name: Jarad Kraft Date of Study: 10/01/2017 Date: 1960 Ht: 72.0in Medical Record#: [id number] Age: 56 Wt: 235.89lb Gender: Male BSA: 2.29 Order #: [id number] BMI: 31.95 Physicians Procedure Physician: Kayode Aranda DO Referring MD: None Referring MD: Staff Name Position Time In JuanChata kennedy RN Monitor 01:24 PM Efraín Thomas RN Drier Transfer Car Operator 01:24 PM Delmi Dubon RN Scrub 01:24 PM Indications Indication Non-Stemi Procedures Performed Procedure CORONARY ARTERY ANGIO S&I IV Doppler BLD Flow 1st Vessel Pre-Procedure Checklist Informed consent is complete signed and on chart. H&P is on chart. ID band is on and ID verified with patient. Patient NPO for procedure The procedure was described for the patient and questions were answered. Blood Pressure: 122/87 ECG is on chart. Rhythm: NSR Plan of Care Patient will tolerate the procedure without complications. Adequate level of comfort will be maintained. Hemodynamics will remain stable Patient will recover from procedure without complications. Respiratory function will be maintained. Cardiac rhythm will remain stable. Patient temperature will be maintained. Patient and/or family have verbalized understanding of the procedure. Patient Education Intravenous Access Time IV Size Location DC'd Fluid/Drip Rate Units RN 12:40 PM 18g 1 1/4" Patent On Arrival Rt Antecubital Efraín Thomas RN 12:40 PM 18g 1 1/4" Patent On Arrival Lt Antecubital 0.9NaCl 25 ml/hr Efraín Thomas RN Allergies No Known Allergies Vital Signs Time BP (mmHg) HR (bpm) O2 Sat. RR (bpm) LOC 12:39 PM 122 / 87 69 92 % 18 5 = Fully awake and oriented or at pre-proc level 01:21 PM / % 5 = Fully awake and oriented or at pre-proc level 01:21 PM / % 4 = Oriented but drowsy 01:37 PM / % 4 = Oriented but drowsy 01:52 PM / % 4 = Oriented but drowsy 01:22 PM 125 / 80 69 96 % 01:26 PM 118 / 81 69 97 % 01:31 PM 125 / 75 65 97 % 15 01:37 PM 115 / 74 62 96 % 22 01:42 PM 126 / 78 58 97 % 15 01:47 PM 123 / 79 73 97 % 10 01:52 PM 129 / 76 70 97 % 11 01:57 PM 116 / 70 72 97 % 17 02:02 PM 115 / 73 81 99 % 02:07 PM 125 / 80 68 98 % 7 Procedural Medications Time Medication Dose Units Method Given By 01:21 PM Oxygen 2 L/min nasal cannula Efraín Thomas RN 01:24 PM Versed 2 mg Intravenous Efraín Thomas RN 01:36 PM Lidocaine 2% 10 ml Subcutaneous Kayode Aranda DO 01:52 PM Heparin 5000 units Intravenous Efraín Thomas RN 01:54 PM Adenosine 899 ml/hr Intravenous Efraín Thomas RN 02:03 PM Adenosine mg Dc'd Efraín Thomas RN 02:06 PM Lidocaine 2% 10 ml Subcutaneous Kayode Aranda DO ASA Classification: CLASS IV- Severe systemic that is constant threat to patient's life Minesh Score Preprocedure Postprocedure Activity 2- Moves 4 extremities sustained head lift Activity 2- Moves 4 extremities sustained head lift Circulation 2- SBP +/= 20 points of pre-anesthetic level Circulation 2- SBP +/= 20 points of pre-anesthetic level Consciousness 2- Awake and alert oriented x 3 Consciousness 2- Awake and alert oriented x 3 O2 Saturation 2- Able to maintain O2 satruation of 92% on room air O2 Saturation 2- Able to maintain O2 satruation of 92% on room air Respiratory 2- Able to deep breathe and cough well Respiratory 2- Able to deep breathe and cough well Total Score 10 Total Score 10 Contrast Agent: Isovue Diagnostic Contrast: 100 ml Total Contrast: 100 ml Fluoro Dose: 676 mGy Procedure Log Time Note Enter By 01: PM CathStat 01: PM Vitals capture started with the following parameters, Patient=Adult, Interval=5 min, Initial Imbnouxg=901 mmHg, Deflation Rate=5 mmHg, Cuff placed on Right Arm 01:21 PM Pt arrived to molder labels 2 at 13:20 csmith : PM Physician arrived 13:21 csmith : PM Meet and greet completed csmith : PM Sign in performed [facility] policy[facility] Procedure start 13:21 csmith :21 PM Time: 13:21 Oxygen on at 2 L/min per nasal cannula by Efraín Thomas RN csmith : PM Time: 13:21 Patient comfortable and pain free: Yes csmith : PM Time: 13:21LOC: 5 = Fully awake and oriented or at pre-proc level csmith : PM HR=69 bpm, CCVS=864/80 mmhg, SpO2=96.0 % 01: PM Chata Martinez RN Position: Monitor Time in: csmith : PM Time: : Versed 2 mg Intravenous Given by Efraín Thomas RN csmith : PM Efraín Thomas RN Position: Drier Transfer Car Operator Time in: csmith : PM Delmi Dubon RN Position: Scrub Time in: csmith 01: PM Patient charges- Angio tray pack, Navilyst 3mm J, Pulse Oximetry and ACIST tubing and transducer csmith : PM Case Delayed No, inpatient csmith : PM Hair removed from procedure site in procedure lab using clippers. Bilateral groin prepped with Chloraprep by Efraín Thomas RN, then patient was draped. Skin intact. csmith : PM Clinical Presentation: Non-STEMI csmith : PM HR=69 bpm, RLJW=557/81 mmhg, SpO2=97.0 %, Comment=nsr 01:29 PM ASA Class CLASS IV- Severe systemic that is constant threat to patient's life csmith 01:29 PM Pressure channel 2 zeroed. 01:31 PM HR=65 bpm, LNUB=224/75 mmhg, SpO2=97.0 %, Resp=15 B/min, Comment=nsr 01:35 PM Time out performed according to hospital policy csmith :36 PM Time: 13:36 10 ml Lidocaine 2% to left groin Subcutaneous Given by Kayode Aranda DO csmith :36 PM Time: 13:21 Patient comfortable and pain free: Yes csmith 01:37 PM Time: 13:21LOC: 4 = Oriented but drowsy csmith 01:37 PM HR=62 bpm, YYUN=443/74 mmhg, SpO2=96.0 %, Resp=22 B/min, Comment=nsr 01:40 PM Micro-Introducer Kit utilized for sheath placement csmith 01:40 PM Access obtained by percutaneous puncture. 6Fr 10cm Terumo [place] sheath placed in left Femoral artery. [id number] csmith 01:40 PM 6Fr FR 4 catheter inserted over the wire [facility] csmith 01:41 PM Recorded Pressure: Ao, HR=60, Condition=Condition 1 (Aorta) Ao 98/55/77 01:41 PM RCA angiography performed in multiple views. csmith 01:42 PM HR=58 bpm, ATLA=410/78 mmhg, SpO2=97.0 %, Resp=15 B/min, Comment=nsr 01:42 PM Catheter removed csmith 01:42 PM 6Fr FL 4 catheter inserted over the wire [facility] csmith 01:44 PM LCA angiography performed in multiple views. csmith 01:44 PM Recorded Pressure: Ao, HR=66, Condition=Condition 1 (Aorta) Ao 98/60/76 01:47 PM HR=73 bpm, ENDU=293/79 mmhg, SpO2=97.0 %, Resp=10 B/min, Comment=nsr 01:47 PM physician reviewing films csmith 01:47 PM Recorded Pressure: Ao, HR=80, Condition=Condition 1 (Aorta) Ao 97/61/78 01:50 PM Inflation device was opened. csmith 01:51 PM .014 Choice Extra Support 182cm guide wire across target lesion- successful. reused? No csmith 01:51 PM 6Fr JL4 Runway guide catheter was used to cannulate the PCI vessel successfully. reused? No csmith 01:51 PM Time: 13:36 Patient comfortable and pain free: Yes csmith 01:52 PM HR=70 bpm, JPVR=997/76 mmhg, SpO2=97.0 %, Resp=11 B/min, Comment=nsr 01:52 PM Time: 13:37LOC: 4 = Oriented but drowsy csmith 01:52 PM Time: 13:52 Heparin 5000 units Intravenous Given by Efraín Thomas RN csmith 01:52 PM Asist FFR Catheter advanced to target lesion. csmith 01:55 PM Recorded Pressure: Ao, HR=71, Condition=Condition 1 (Aorta) Ao 96/63/78 01:57 PM HR=72 bpm, CRIY=599/70 mmhg, SpO2=97.0 %, Resp=17 B/min, Comment=nsr 01:58 PM Coronary Dominance: Co-dominant csmith 01:59 PM Lesion found in Mid RCA. Pre Stenosis: 30 Pre GARCÍA Flow: csmith 01:59 PM Lesion found in Proximal LAD. Pre Stenosis: 30 Pre GARCÍA Flow: 3: Complete and Brisk Flow/Perfusion csmith 02:00 PM Recorded Pressure: Ao, HR=70, Condition=Condition 1 (Aorta) Ao 108/71/88 02:02 PM HR=81 bpm, CDJA=002/73 mmhg, SpO2=99.0 % 02:02 PM Lesion found in 1st Marginal. Pre Stenosis: 50 Pre GARCÍA Flow: csmith 02:03 PM FFR Measurement: 0.84 csmith 02:03 PM Time: 14:03 Adenosine mg Dc'd Given by Efraín Thomas RN csmith 02:03 PM 500ml bolus given by LISA Kenny per csmith 02:04 PM guide wire removed csmith 02:05 PM Flow Wire/Catheter removed intact csmith 02:05 PM Guide catheter removed intact. csmith 02:06 PM Time: 14:06 10 ml Lidocaine 2% to left groin Subcutaneous Given by Kayode Aranda DO csmith 02:07 PM HR=68 bpm, TSWV=378/80 mmhg, SpO2=98.0 %, Resp=7 B/min, Comment=nsr 02:07 PM Time: 13:52LOC: 4 = Oriented but drowsy csmith 02:08 PM Procedure completed at 14:08 csmith 02:12 PM Vitals capture stopped. 02:12 PM Did you address GARCÍA flow and Dominance? Yes csmith 02:13 PM Sign out completed: Radiation Dose 676 mGy Fluoro Time: 6.2 Isovue 370 - 200ml contrast 100 ml given by Kayode Aranda DO. Complications: NoneCardiac Rehab Consult needed: YesConfirmed administered medications: Yes csmith 02:13 PM Isovue 370 - 200ml,1 Bottle(s) used. csmith 02:13 PM Arterial sheath pulled, Angio-seal closure device used and was Successful [id number] S/N. csmith 02:13 PM Estimated Blood Loss: minimal csmith 02:14 PM Post ECG NSR csmith 02:15 PM Post Blood Pressure 125/80 csmith 02:17 PM 14:15 Post Pulses Bilateral DP & PT 2+ csmith 02:17 PM Information taught Cardiac Cath csmith 02:17 PM Education needs Procedure, Plan of Care, and Responsibilities of Patient in Care csmith 02:17 PM Learning barriers :None csmith 02:18 PM Education Methods Verbal csmith 02:18 PM Education evaluation Able to repeat information csmith 02:19 PM Site status No bleeding/hematoma - Rt Groin as reported by Delmi Dubon RN at 14:18 csmith 02:19 PM Opsite applied csmith 02:20 PM Report given to Stephanie GONZALEZ Pt taken to 2N Room #9. 14:20 csmith 02:20 PM Plavix, Effient or Brilinta given No csmith 02:21 PM Delay to floor No csmith 02:21 PM Patient out of room: 14:21 csmith 02:22 PM Family placed in consult room. csmith 02:22 PM Complications: None csmith 02:22 PM Fluoro Time: 6.2 csmith 02:22 PM Radiation Dose 676 mGy csmith 08:00 PM Time: 13:54 Adenosine 899 ml/hr Intravenous [facility] Complications Complication None None Hemodynamics Pressures Site Systolic/A Wave Diastolic/V Wave Mean AO 98 55 77 AO 98 60 76 AO 97 61 78 AO 96 63 78 AO 108 71 88 Post Procedure Information Blood Pressure: 125/80 mmHg Rhythm: NSR Post procedural instructions were given Closure Device Time Device Success/Fail 10/01/2017 2:22:00 PM Angio-Seal VIP Successful Site Checks Time Location Status Staff Sheath In? Note 02:18 PM Rt Groin No bleeding/hematoma Delmi Dubon RN Pulses Time Site Pre-Procedure Post-Procedure Note 10/01/2017 12:41:00 PM Bilateral DP & bilateral radial 2+ 2:15:00 PM Bilateral DP & PT 2+ Updated by Efraín Thomas RN on 10/01/2017 2:29:56 PM electronically signed on 10/01/2017 2:32:51 PM with status of Final
[2017-10-01] MEDS: 0.9 % Sodium Chloride 1,000 ML IVC SCH (14:45)
--- NOTE | 2017-10-01 15:08 | Event Note ---
Date of Encounter: 10/01/17 Time of Encounter: 14:30 - Cardiology Event Note Per discussion with Dr. Aranda, patent prox LAD stent, no interventions warranted. Discussed with Dr. Tripp, will resume Coumadin for apparent recent diagnosis of atrial fibrillation. Patient and family educated on importance of aspirin, Brilinta, and Coumadin. Patient aware to monitor for any signs of bleeding or blood loss. Education provided regarding right groin site postprocedure. Cardiology will sign off, reconsult as needed, follow-up arranged.
[2017-10-01] MEDS ORDERED: *HR* Warfarin 5 MG TABLET PO ONE (18:00)
[2017-10-01] MEDS ORDERED: Warfarin perPT PO PRN (18:00)
[2017-10-01] MEDS ORDERED: Insulin LISPRO 300 UNITS/3 ML VIAL SQ SCH (21:00)
--- NOTE | 2017-10-01 21:56 | Electrocardiograph Report ---
[address] [place], [place] [address] Test Date: 2017-09-30 Pat Name: Jarad Kraft Department: 104 Room: 2N09 Gender: M Family Nurse: HARRIET : 1960 Requested By: Cristina Medina Order Number: [id number] Reading MD: Jarrett Bee MD Measurements Intervals [place] Rate: 70 P: 50 NV: 183 QRS: -13 QRSD: 88 T: 12 QT: 388 QTc: 408 Interpretive Statements SINUS RHYTHM SEPTAL MYOCARDIAL INFARCTION, PROBABLY RECENT MARKED ST ELEVATION, CONSIDER ANTERIOR INJURY ACUTE MO Electronically Signed On 10-01-2017 21:54:28 EST by Jarrett Bee MD
[2017-10-02] MEDS: 0.9 % Sodium Chloride 1,000 ML IVC SCH ×2 (02:22→05:26)
[2017-10-02 04:19] LABS: Basophils % 0.4 %; Eosinophils # 0.3 K/mcL (0.0-0.6); Eosinophils % 2.9 %; Hematocrit 43.4 % (37.5-50.1); Hemoglobin 14.5 g/dL (12.9-16.9); Immature Granulocytes % 0.4 % (0-4); Lymphocytes # 2.3 K/mcL (0.6-4.6); Lymphocytes % 22.9 %; Mean Corpuscular HGB Conc 33.4 g/dL (31.6-35.5); Mean Corpuscular Hemoglobin 29.2 pg (28.0-33.3); Mean Corpuscular Volume 87.5 fL (83.0-100.0); Mean Platelet Volume 10.5 fL (9.4-12.4); Monocytes % 10.3 %; Neutrophils # 6.4 K/mcL (1.6-8.9); Platelet Count 303 K/mcL (140-400); Red Blood Count 4.96 M/mcL (4.19-5.50); Red Cell Distribution Width 12.9 % (11.5-14.5); Segmented Neutrophils % 63.1 %
[2017-10-02 04:24] LABS: INR 1.4; Prothrombin Time 14.9 Seconds (9.4-12.1)
[2017-10-02 04:38] LABS: BUN/Creatinine Ratio 23 (6-26); Blood Urea Nitrogen 17 mg/dL (6-20); Calcium 8.6 mg/dL (8.6-10.3); Carbon Dioxide 22 mEq/L (23-29); Chloride 103 mEq/L (98-107); Glucose 137 mg/dL (70-105); Osmolality,Calculated 280 (280-300); Phosphorous 3.4 mg/dL (2.7-4.5); Potassium 4.1 mEq/L (3.5-5.1); Sodium 133 mEq/L (136-145); eGFR For African Americans > 60 (> 60); eGFR For Non-African Americans > 60 (> 60)
[2017-10-02] MEDS: *HR* Heparin 5,000 UNIT/ML VIAL SQ SCH (05:26)
[2017-10-02 07:26] VITALS: BP 125/75
[2017-10-02] MEDS: Spironolactone 25 MG TABLET PO SCH (07:28)
[2017-10-02] MEDS: *HR* Ticagrelor 90 MG TABLET PO SCH (07:28)
[2017-10-02] MEDS: Aspirin Enteric Coated 81 MG Tablet PO SCH (07:29)
[2017-10-02] MEDS: Insulin LISPRO 300 UNITS/3 ML VIAL SQ SCH (07:30)
--- NOTE | 2017-10-02 10:10 | Discharge Summary ---
Date of Encounter: 10/02/17 Time of Encounter: 10:08 - Discharge Diagnosis (1) Healthcare-associated pneumonia Priority: Primary Status: Acute (2) CAD (coronary artery disease) Priority: Secondary Status: Acute Qualifiers: Coronary Disease-Associated Artery/Lesion type: pala artery [place] vs. transplanted heart: pala heart Associated angina: angina presence unspecified Qualified Code(s): I25.10 - Atherosclerotic heart disease of pala coronary artery without angina pectoris (3) Elevated troponin Priority: Primary Status: Acute (4) HTN (hypertension) Priority: Secondary Status: Chronic Qualifiers: Hypertension type: essential hypertension Qualified Code(s): I10 - Essential (primary) hypertension (5) Hyperlipidemia Priority: Secondary Status: Chronic Qualifiers: Hyperlipidemia type: pure hypercholesterolemia Qualified Code(s): E78.00 - Pure hypercholesterolemia, unspecified; E78.0 - Pure hypercholesterolemia (6) Diabetes mellitus Priority: Secondary Status: Acute Qualifiers: Diabetes mellitus type: type 2 Diabetes mellitus complication status: without complication Diabetes mellitus assisted insulin use: without assisted use Qualified Code(s): E11.9 - Type 2 diabetes mellitus without complications - Discharge Medications Prescriptions: levoFLOXacin [Levaquin] 500 mg PO DAILY #2 tablet Home Medications: Aspirin [Lo-Dose Aspirin EC] 81 mg PO DAILY 09/30/17 [History] Atorvastatin Calcium 80 mg PO DAILY 09/30/17 [History] Carvedilol [Coreg] 6.25 mg PO BIDWM 09/30/17 [History] Famotidine [Heartburn Prevention] 20 mg PO BID 09/30/17 [History] Furosemide [Lasix] 20 mg PO DAILY PRN 09/30/17 [History] Lisinopril [Zestril] 5 mg PO DAILY 09/30/17 [History] Nitroglycerin [Nitrostat] 0.4 mg SL Q5M PRN 09/30/17 [History] Spironolactone [Aldactone] 25 mg PO DAILY 09/30/17 [History] Ticagrelor [Brilinta] 90 mg PO BID 09/30/17 [History] Warfarin [Coumadin] 5 mg PO DAILY 09/30/17 [History] glipiZIDE [Glucotrol] 5 mg PO BIDWM 09/30/17 [History] levoFLOXacin [Levaquin] 500 mg PO DAILY #2 tablet 10/02/17 [Rx] Allergies/Adverse Reactions: 3 Allergy/AdvReac Type Severity Reaction Status Date / Time No Known Allergies Allergy Verified 09/30/17 08:49 Procedures/tests Complete & Pending: Procedures Performed prior 72 hours Category Date Time Status CL Cardiac Catheterization [CL] Routine Napkin Band Wrapper 10/01/17 11:52 Completed EV echocardiogram w enhance Stat Y 09/30/17 11:25 Completed Date of admission: 09/30/17 11:03 Primary care physician: PCP NONE Consults: 10/01/17 10:34 Consult to Cardiac Rehabilitation-Phase1 [CONS] Routine Comment: Reason for Consult: AR, CAD, recent stenting Call Completed: No - Patient Status Disposition: Home, Self-Care Condition: Good Overall status at discharge: patient is progressing back to baseline - Discharge Instructions Instructions: Levofloxacin (By mouth), Bronchiolitis (DC) Follow Up With: anticoagulation,clinic [Other] - 10/06/17 2:00 pm (Please bring your bottle of Warfin with you to the appoinment, a list of all vitamins. ) Michael Tripp DO [Partnered Physician] - (2 weeks) Jose Whalen MD [Non-Partnered Physician] - 10/12/17 10:15 am - Diet and Activity Activity: increase activity as tolerated Diet: diabetic diet, low salt diet Hospital course: Mr. Kraft is a 56 year old male with history of diabetes, high cholesterol, hypertension. He recently and anterior wall acute AR underwent PTCA stent placement to proximal LAD that was on September 26 while vacationing in [place]. He drove back home with his and developed shortness of breath since yesterday , PND and orthopnea but no chest pain no chest tightness or pressure. EKG showed ST elevation and initially it was felt patient was having STEMI. cardiology was called and reviewed the EKG which was unchanged from EKG from the time of his acute AR. Patient was not taken to the Napkin Band Wrapper . patient initial troponin was 9.6 and it trended down to 7.57. A CTA of the chest suggestive of atypical pneumonia. He was put on IV antibiotics. Cardiology followed along. He was eventually taken for left heart catheterization and it showed a patent stent. No other intervention was done. He was discharged the following morning on oral antibiotics to finish treatment for pneumonia. He was stable for discharge on 10/02 with follow-up with cardiology and his PCP. - Time Spent with Patient Total time spent providing and/or coordinating discharge services: Greater than 30 minutes - Constitutional Vitals: Temp Pulse Resp BP Pulse Ox 98.1 F 75 14 125/75 96 10/02/17 07:20 10/02/17 07:20 10/02/17 07:20 10/02/17 07:20 10/02/17 07:20 Exam: GEN: NAD CVS: RRR. S1, S2, No m/r/g RESP: Diminished with bibasilar coarse breath sounds and crackles. ABD: Soft, NT, ND, +BS EXT: No edema. 2+ DP. No rashes NEURO: Nonfocal
== END 2017-10-02 11:40 | disposition home or self-care (01) | DRG 193 ==
LOC: EMEROO 08:47 → ICNU 11:03 → 2NNU 11:09
PROVIDERS: ADMIT Internal Medicine Cardiovascular Disease; ATTEND Hospitalist